=== PATIENT | female | born 1945 | race Caucasian/White ===

== ENCOUNTER → 2016-09-25 | Outpatient (CLI) | payer MEDICARE, MEDICAID ==
[~2016-09-25] MED LIST: ACIDOPHILUS PO; ALTACE 2.5MG T2.5 MG PO; ANTACID1 CAP PO; ASPIRIN 32325 MG/TAB PO; CARDI-OMEGA1000 MG PO; CO ENZYME Q-1050 MG PO; LIPITOR 40MG TA40 MG PO; LIPITOR 80MG80 MG PO; LOPRESSOR 225 MG/TAB PO; LOPRESSOR100 MG PO; MULTIPLE VITAMI1 TAB PO; NITROSTAT0.4 MG/TAB SL; NORCO 325 MG-51 TAB PO; PLAVIX 75MG TAB75 MG PO; PRAVACHOL80 MG PO; PROTONIX 40MG T40 MG PO; SLEEP AID; TENORMIN 2525 MG/TAB PO; TIROSINT50 MCG PO; TYLENOL 325MG325 MG PO; VITAMIN B COMPL1 T16 PO; VITAMIN B121000 MC2 SL
== END ==
LOC: COL.RAD 08:00
DX: M25.551 Pain in right hip (principal)
CPT/HCPCS: J3301; Q9967

== ENCOUNTER → 2016-11-08 | Outpatient (CLI) | payer MEDICARE, MEDICAID | LOC: MC.RAD 07:56 | DX: Z12.31 Encounter for screening mammogram for malignant neoplasm of breast (principal) ==

== ENCOUNTER → 2017-08-28 | Outpatient (CLI) | payer MEDICARE, MEDICAID | LOC: COL.LAB 10:05 | DX: Z47.1 Aftercare following joint replacement surgery (principal); Z96.641 Presence of right artificial hip joint ==

== ENCOUNTER 2017-09-30 12:37 | Emergency (ER) | payer MEDICARE, MEDICAID ==
[~2017-09-30] VITALS: Ht 149.9 cm; Wt 96.4 kg
[2017-09-30 12:45] VITALS: TEMP 99.3
[2017-09-30] MEDS ORDERED: ASPIRIN 81M81 MG/TA2 PO (12:49)
[2017-09-30] MEDS ORDERED: PLAVIX 75MG TAB75 MG PO (12:49)
[2017-09-30 13:08] LABS: BASO # 0.1 (0.0-0.2); BASO % 1.1 % (0.0-2.0); EOS # 0.8 (0.0-0.7); EOS % 10.1 % (0-4.0); GRAN # 4.6 (1.4-6.5); GRAN % 58.6 % (42.2-75.2); HEMATOCRIT 42.5 % (37.0-47.0); HEMOGLOBIN 13.6 g/dl (12.5-16.0); LYMPH # 1.8 (1.2-3.4); LYMPH % 23.2 % (20.0-51.0); MEAN CELL VOLUME 87 fl (80.0-100.0); MEAN CORPUSCULAR HEMOGLOBIN 28 pg (27.0-31.0); MEAN CORPUSCULAR HGB CONC 32 g/dl (33.0-37.0); MEAN PLATELET VOLUME 10.1 fl (7.4-10.4); MONO # 0.6 (0.1-0.6); MONO % 6.9 % (1.7-9.3); PLATELET COUNT 266 K/mm3 (130-400); REDCELL DISTRIBUTION WIDTH-CV 14.2 % (11.5-14.5)
[2017-09-30 13:12] LABS: INR 1.1 (0.8-3.0); PROTHROMBIN TIME 12.7 SECONDS (9.7-12.8)
[2017-09-30 13:14] LABS: PARTIAL THROMBOPLASTIN TIME 43.3 SECONDS (26.0-37.0)
[2017-09-30 13:18] LABS: ALANINE AMINOTRANSFERASE 30 U/L (9-52); ALBUMIN 4.3 gm/dL (3.5-5.0); ALKALINE PHOSPHATASE 99 U/L (50-136); ANION GAP 13 mmol/L (7-16); AST,SGOT 29 U/L (15-37); BILIRUBIN,TOTAL 0.7 mg/dL (0.0-1.0); BLOOD UREA NITROGEN 13 mg/dL (7-17); CALCIUM 9.7 mg/dL (8.4-10.2); CARBON DIOXIDE 23 mmol/L (22-30); CHLORIDE 103 mmol/L (98-107); CREATININE, serum 0.79 mg/dL (0.52-1.25); GLUCOSE 107 mg/dL (74-106); POTASSIUM 4.5 mmol/L (3.4-5.0); SODIUM 139 mmol/L (137-145); TOTAL PROTEIN 8.7 gm/dL (6.4-8.2)
[2017-09-30 13:31] LABS: TROPONIN-I < 0.012 ng/mL (0.000-0.034)
[2017-09-30 15:10] VITALS: BP 108/51; PULSE 77
== END 2017-09-30 15:08 | disposition home or self-care (01) ==
LOC: COL.ER 12:37
PROVIDERS: Family Medicine
DX: I25.10 Atherosclerotic heart disease of native coronary artery without angina pectoris (principal); R07.9 Chest pain, unspecified; Z95.5 Presence of coronary angioplasty implant and graft; Z79.02 Long term (current) use of antithrombotics/antiplatelets; Z79.82 Long term (current) use of aspirin

== ENCOUNTER → 2018-11-11 | Outpatient (CLI) | payer MEDICARE, MEDICAID ==
[~2018-11-11] MED LIST changes: +ASPIRIN 81M81 MG/TA2 PO
== END ==
LOC: MC.RAD 08:21
DX: Z12.31 Encounter for screening mammogram for malignant neoplasm of breast (principal)

== ENCOUNTER → 2019-04-14 | Outpatient (CLI) | payer MEDICARE, MEDICAID | LOC: ZCOL.LAB 14:59 | DX: H60.91 Unspecified otitis externa, right ear (principal) ==

== ENCOUNTER → 2019-10-21 | Outpatient (CLI) | payer MEDICARE, MEDICAID ==
[~2019-10-21] MED LIST changes: +00186-0370-20 IH; +AMBIEN 5MG TABLE5 MG PO; +B-12 250 MCG; +CLARITIN 1010 MG/TAB PO; +CRESTOR20 MG PO; +FOLIC ACID 40400 MCG PO; +FOSAMAX 70MG TA70 MG PO; +LASIX 20MG TABL20 MG PO; +MEGA RED PO; +NATURAL IRON65 MG; +SYNTHROID0.05 MG/TA PO; -TIROSINT50 MCG PO; -VITAMIN B121000 MC2 SL; +VITAMIN C500 MG PO; +VITAMIN D PO; +ZOLOFT 50MG50 MG PO
== END ==
LOC: COL.LAB 08:00
DX: Z20.828 Contact with and (suspected) exposure to other viral communicable diseases (principal)

== ENCOUNTER 2019-10-26 09:07 | Day surgery (SDC) | payer MEDICARE, MEDICAID ==
[~2019-10-26] VITALS: Ht 149.9 cm; Wt 106.4 kg
[2019-10-26] VITALS (9 sets, daily range): BP systolic 92–136; BP diastolic 47–81; PULSE 73–79; TEMP 98
[~2019-10-26 09:07] MED LIST changes: -00186-0370-20 IH; -AMBIEN 5MG TABLE5 MG PO; -CLARITIN 1010 MG/TAB PO; -CRESTOR20 MG PO; -FOLIC ACID 40400 MCG PO; -FOSAMAX 70MG TA70 MG PO; -LASIX 20MG TABL20 MG PO; -MEGA RED PO; -NATURAL IRON65 MG; -VITAMIN C500 MG PO; -VITAMIN D PO; -ZOLOFT 50MG50 MG PO
[2019-10-26] MEDS ORDERED: FOSAMAX 70MG TA70 MG PO (09:19)
[2019-10-26] MEDS ORDERED: ZOLOFT 50MG50 MG PO (09:22)
[2019-10-26] MEDS ORDERED: CRESTOR20 MG PO (09:22)
[2019-10-26] MEDS ORDERED: 00186-0370-20 IH (09:23)
[2019-10-26] MEDS ORDERED: AMBIEN 5MG TABLE5 MG PO (09:24)
[2019-10-26] MEDS ORDERED: CLARITIN 1010 MG/TAB PO (09:26)
[2019-10-26] MEDS ORDERED: VITAMIN D PO (09:26)
[2019-10-26] MEDS ORDERED: MEGA RED PO (09:30)
[2019-10-26] MEDS ORDERED: NATURAL IRON65 MG (09:32)
[2019-10-26] MEDS ORDERED: VITAMIN C500 MG PO (09:33)
[2019-10-26] MEDS ORDERED: FOLIC ACID 40400 MCG PO (09:33)
[2019-10-26 10:09] LABS: HEMATOCRIT 37.9 % (37.0-47.0); HEMOGLOBIN 12.2 g/dl (12.5-16.0); MEAN CELL VOLUME 90 fl (80.0-100.0); MEAN CORPUSCULAR HEMOGLOBIN 29 pg (27.0-31.0); MEAN CORPUSCULAR HGB CONC 32 g/dl (33.0-37.0); MEAN PLATELET VOLUME 10.3 fl (7.4-10.4); PLATELET COUNT 231 K/mm3 (130-400); RED BLOOD COUNT 4.22 M/mm3 (4.10-5.30); REDCELL DISTRIBUTION WIDTH-CV 13.1 % (11.5-14.5)
[2019-10-26 10:24] LABS: CALCIUM 9.5 mg/dL (8.4-10.2); CREATININE, serum 0.77 (0.52-1.25); POTASSIUM 4.6 mmol/L (3.4-5.0)
[2019-10-26 10:27] LABS: PROTHROMBIN TIME 11.3 SECONDS (9.7-12.8)
[2019-10-26 10:30] LABS: PARTIAL THROMBOPLASTIN TIME 43.4 SECONDS (26.0-37.0)
--- NOTE | 2019-10-26 11:05 | NUR ---
SEE MERGE DOCUMENTATION FOR MEDICATION ADMINISTRATION TIMES AND INTRA/POST PROCEDURE SEDATION ASSESSMENTS. HX OF CABG, PLAN FOR LEFT RADIAL ACCESS. LEFT HAND BARBEAU TEST POSITIVE.
[2019-10-26] MEDS ORDERED: LASIX 20MG TABL20 MG PO (12:13)
--- NOTE | 2019-10-26 14:05 | NUR ---
Pt up and ambulating in and around the room with no complications. Pt voiding with no complications. Pt tolerated intake with no N/V.
--- NOTE | 2019-10-26 15:00 | NUR ---
Discharge instructions were reviewed with pt. Pt voiced understanding. Daughter at bedside. TR band was removed, no bleeding, 2x2 gauze and coban applied to left radial site. IV was discontinued in the right arm, catheter tip intact, no phlebitis or infiltration. Pt was discharged via w/c to the care of daughter in private vehicle.
== END 2019-10-26 15:00 | disposition home or self-care (01) ==
LOC: COL.CAR 09:07
PROVIDERS: Internal Medicine Cardiovascular Disease
DX: I25.10 Atherosclerotic heart disease of native coronary artery without angina pectoris (principal); I10 Essential (primary) hypertension; E78.5 Hyperlipidemia, unspecified; E11.9 Type 2 diabetes mellitus without complications; I07.1 Rheumatic tricuspid insufficiency; I77.810 Thoracic aortic ectasia; Z95.5 Presence of coronary angioplasty implant and graft; Z79.899 Other long term (current) drug therapy; Z79.82 Long term (current) use of aspirin
CPT/HCPCS: J1644; J1940; J2250; J3010; Q9967

== ENCOUNTER → 2021-01-18 | Outpatient (CLI) | payer MEDICARE, MEDICAID ==
[~2021-01-18] MED LIST changes: +00186-0370-20 IH; +AMBIEN 5MG TABLE5 MG PO; +CLARITIN 1010 MG/TAB PO; +CRESTOR20 MG PO; +FOLIC ACID 40400 MCG PO; +FOSAMAX 70MG TA70 MG PO; +LASIX 20MG TABL20 MG PO; +MEGA RED PO; +NATURAL IRON65 MG; +VITAMIN C500 MG PO; +VITAMIN D PO; +ZOLOFT 50MG50 MG PO
== END ==
LOC: COL.RAD 12-06 14:00
DX: Z12.2 Encounter for screening for malignant neoplasm of respiratory organs (principal); J44.9 Chronic obstructive pulmonary disease, unspecified; J84.10 Pulmonary fibrosis, unspecified; Z87.891 Personal history of nicotine dependence

== ENCOUNTER 2021-04-03 13:51 | Emergency (ER) | payer MEDICARE, MEDICAID ==
[~2021-04-03] VITALS: Ht 152.4 cm; Wt 97.7 kg
[2021-04-03 15:50] VITALS: BP 120/80; PULSE 80
== END 2021-04-03 15:50 | disposition home or self-care (01) ==
LOC: COL.ER 13:51
DX: S61.200A Unspecified open wound of right index finger without damage to nail, initial encounter (principal); I10 Essential (primary) hypertension; E78.5 Hyperlipidemia, unspecified; I25.10 Atherosclerotic heart disease of native coronary artery without angina pectoris; I25.2 Old myocardial infarction; G47.00 Insomnia, unspecified; Z79.01 Long term (current) use of anticoagulants; Z79.82 Long term (current) use of aspirin; Z79.899 Other long term (current) drug therapy; W26.8XXA Contact with other sharp object(s), not elsewhere classified, initial encounter

== ENCOUNTER → 2021-11-20 | Outpatient (CLI) | payer MEDICARE, MEDICAID | LOC: COL.RAD 09:11 | DX: M75.101 Unspecified rotator cuff tear or rupture of right shoulder, not specified as traumatic (principal); M89.9 Disorder of bone, unspecified ==

== ENCOUNTER → 2022-01-18 | Outpatient (CLI) | payer MEDICARE, MEDICAID | LOC: COL.RAD 07:35 | DX: Z12.2 Encounter for screening for malignant neoplasm of respiratory organs (principal); Z87.891 Personal history of nicotine dependence ==

== ENCOUNTER → 2023-12-06 | Outpatient (CLI) | payer MEDICARE, MEDICAID | LOC: COL.RAD 13:18 | DX: Z12.2 Encounter for screening for malignant neoplasm of respiratory organs (principal); Z87.891 Personal history of nicotine dependence ==